=== PATIENT | male | born 1990 | race Caucasian/White ===

== ENCOUNTER 2025-04-20 09:17 | Outpatient (CLI) | payer OTHER, SELFPAY ==
--- OUTSIDE RECORDS SUMMARY | 2025-04-20 09:25 | XMS_ITS | Encounter Summary ---
Author Organization [place] [address] Care Team Providers Care Armature Inspector Name Role Phone Devi Lazo BLAIRE Primary Care Provider [phone] Encounter Details Date Type Department Care Team (Latest Contact Info) Description 02/10/2025 Results Follow-Up [facility] [address] [place] [address] Waqas Olvera MD [address] [place] [address] TESTOSTERONE LEVEL TOTAL, CBC, BASIC METABOLIC PANEL, Additional followed-up results: 6 Social History Tobacco Use Types Packs/Day Years Used Date Smoking Tobacco: Never Smokeless Tobacco: Never Alcohol Use Standard Drinks/Week Comments Yes 0 (1 standard drink = 0.6 oz pur e alcohol) weekends/socially PHQ-2 Answer Date Recorded PHQ-2 Total Score 0 09/13/2024 Sexually Active Control Partners Comments Not Currently Sex and Gender Information Value Date Recorded Sex Assigned at Not on file Legal Sex Male 11:25 AM EDT Gender Identity Not on file Sexual Orientation Not on file documented as of this encounter Functional Status * Is the person deaf or does he/she have serious difficulty hearing? Answer Date of Assessment Author No 09/13/2024 10:14 AM Carly Valadez CCMA * Is the person blind or does he/she have serious difficulty seeing even when wearing glasses? Answer Date of Assessment Author No 09/13/2024 10:14 AM Carly Valadez CCMA * Does this person have serious difficulty walking or climbing stairs? Answer Date of Assessment Author No 09/13/2024 10:14 AM Carly Valadez CCMA * Does this person have difficulty dressing or bathing? Answer Date of Assessment Author No 09/13/2024 10:14 AM Carly Valadez CCMA * Because of a physical, mental or emotional condition, does this person have difficulty doing errands alone such as visiting a doctor's office or shopping? Answer Date of Assessment Author No 09/13/2024 10:14 AM Carly Valadez CCMA documented as of this encounter Mental Status * Because of a physical, mental or emotional condition, does this person have serious difficulty concentrating, remembering or making decisions? Answer Entry Date Author No 09/13/2024 10:14 AM Carly Valadez CCMA documented in this encounter Plan of Treatment Not on file documented as of this encounter Goals Goal Patient Goal Type Associated Problems Recent Progress Patient-Stated? Author Maintain a healthy diet, exercise regularly and maintain an ideal body weight General No Sherita Butt, KAL documented as of this encounter Visit Diagnoses Not on filedocumented in this encounter Care Teams Armature Inspector Relationship Specialty Start Date End Date Devi Lazo APRN [address] [place] [phone] PCP - General Nurse Practitioner 09/14/20 documented as of this encounter
--- OUTSIDE RECORDS SUMMARY | 2025-04-20 09:25 | XMS_ITS | Clinical Summary ---
Author Organization [facility] Address [address] [place] [address] Phone Care Team Providers Care Automotive Buyer Name Role Phone Devi Lazo BLAIRE Primary Care Provider [phone] Allergies Active Allergy Reactions Criticality Noted Date Comments Amitriptyline Other (See Comments) 04/04/2017 Per patient's mother he sleeps all day Medications loratadine (CLARITIN) 10 mg Oral Tablet Take 10 mg by mouth daily. Active ALBUTEROL INHL Inhale into the lungs. Active fluticasone propionate (FLOVENT) 44 mcg/actuation Inhl HFA Aerosol InhalerIndicatio ns:History of asthma Inhale 1 Puff into the lungs 2 times daily. 10.6 g 5 09/13/2024 Active albuterol (PROVENTIL HFA;VENTOLIN HFA) 90 mcg/actuation Inhl HFA Aerosol InhalerIndicatio ns:History of asthma Inhale 2 Puffs into the lungs every 6 hours as needed for Wheezing. 18 g 5 09/13/2024 Active Active Problems Patient Care Coordination No te Formatting of this note migh t be different from the original. ade-07/16/22([id number] Problem Noted Date Diagnosed Date Non-recurrent bilateral ingu inal hernia without obstruction or gangrene 09/22/2024 Assessment & Plan (09/22/2024 12:39 PM EDT): Migraine without aura and wi thout status migrainosus, not intractable 04/04/2017 Mild intermittent asthma without complication ADHD (attention deficit hyperactivity disorder) Encounters Date Type Department Care Team Description 02/10/2025 7:45 AM EDT - 02/10/2025 11:59 PM EDT Hospital Encounter [facility] [address] [place] [address] 129 Malaise and fatigue; Elevated LFTs; Vitamin D deficiency; Hyperlipidemia with target LDL less than 100 Discharge Disposition: Home or Self Care 02/10/2025 Results Follow-Up [facility] [address] [place] [address] Waqas Olvera MD TESTOSTERONE LEVEL TOTAL, CBC, BASIC METABOLIC PANEL, Additional followed-up results: 6 02/08/2025 4:40 PM EDT Office Visit [facility] [address] [place] [address] Devi Lazo APRN Malaise and fatigue (Primary Dx); Vitamin D deficiency; Elevated LFTs; Hyperlipidemia with target LDL less than 100 from Last 3 Months Immunizations Immunization Administration Dates Next Due Adenovirus, Unspecified 03/09/2018 HPV 9 Valent 05/02/2016,01/12/2016 Hep A/Hep B 04/27/2018,03/09/2018 IPV 03/09/2018 Influenza Seasonal Injectable PF 06/16/2013 Influenza Vaccine Quadrivalent 05/02/2016 Influenza Vaccine Quadrivalent PF 02/28/2018 Influenza Vaccine, Unspecified Formulation 02/26 MMR 04/27/2018,03/09/2018 Meningococcal Conjugate 03/19/2007 Meningococcal Oligosaccharide Conjugate 03/09/20 18 Pfizer SARS-CoV-2 Vaccine 12+ Yrs (Purple Cap) 0 05/25/2021,05/03/2021 Td, Unspecified Formulation 09/19/2004 Tdap 03/09/2018,01/12/2016 Varicella 04/27/2018,03/09/2018 Medical History Medical History Date Comments Asthma ADHD (attention deficit hyperactivity disorder) Migraines Migraine without aura and wi thout status migrainosus, not intractable 04/04/2017 Lumbar back pain 01/2020 Family History Medical History Relation Name Comments No Known Problems Brother No Known Problems Father Cancer Maternal Grandfather Cancer Maternal Grandmother Heart Disease Mother Other Mother Brain aneurysm No Known Problems Other Cancer Paternal Grandfather Cancer Paternal Grandmother No Known Problems Sister Allergies Neg Hx Bleeding Prob Neg Hx Hearing Loss Neg Hx Migraines Neg Hx Thyroid Disease Neg Hx Relation Name Status Comments Brother Father Maternal Grandfather Maternal Grandmother Mother Other Paternal Grandfather Paternal Grandmother Sister Social History Tobacco Use Types Packs/Day Years Used Date Smoking Tobacco: Never Smokeless Tobacco: Never Tobacco Cessation:Counseling Given: No Alcohol Use Standard Drinks/Week Comments Yes 0 (1 standard drink = 0.6 oz pur e alcohol) weekends/socially PHQ-2 Answer Date Recorded PHQ-2 Total Score 0 09/13/2024 Sexually Active Control Partners Comments Not Currently Sex and Gender Information Value Date Recorded Sex Assigned at Not on file Legal Sex Male 11:25 AM EDT Gender Identity Not on file Sexual Orientation Not on file Last Filed Vital Signs Vital Sign Reading Time Taken Comments Blood Pressure 130/82 02/08/2025 4:19 PM EDT Pulse 65 02/08/2025 4:19 PM EDT Temperature 36.6 C (97.9 F) 02/08/2025 4:19 PM EDT Respiratory Rate 18 09/13/2024 10:14 AM EDT Oxygen Saturation 98% 02/08/2025 4:19 PM EDT Inhaled Oxygen Concentration - - Weight 80.8 kg (178 lb 3.2 oz) 02/08/2025 4:19 P M EDT Height 175.3 cm (5' 9 ) 02/08/2025 4:19 PM EDT Body Mass Index 26.32 02/08/2025 4:19 PM EDT Plan of Treatment Health Maintenance Due Date Last Done Comments Pneumococcal Vaccine 0-49 (1 of 2 - PCV) 2008 Hepatitis B Vaccine (3 of 3 - Hep B Twinrix 3-dose series) 09/25/2018 04/27/2018, 03/09/2018 COVID-19 Vaccine (3 - season) 2025 05/25/2021, 05/03/2021 Influenza Vaccine (#1) 2025 , 03/24/2021, 02/17/2020, Additional history exists Annual Wellness Exam 09/13/2025 09/13/2024, 03/26/2022, 04/04/2017, Additional history exists DTaP/TDaP/Td (4 - Td or Tdap) 03/09/2028 03/09/2018, 01/12/2016, 09/19/2004 Meningococcal B Vaccine Aged Out No l onger eligible based on patient's age to complete this topic Goals Goal Patient Goal Type Associated Problems Recent Progress Patient-Stated? Author Maintain a healthy diet, exercise regularly and maintain an ideal body weight General No Sherita Butt RMA Procedures Procedure Name Priority Date/Time Associated Diagnosis Comments LIPID PANEL REFLEX Routine 02/10/2025 7: 46 AM EDT Hyperlipidemia with target LDL less than 100 VITAMIN B12/ FOLIC ACID Routine 02/10/2025 7:46 AM EDT Malaise and fatigue T4, FREE (THYROXINE) Routine 02/10/2025 7:46 AM EDT Malaise and fatigue THYROID STIMULATING HORMONE Routine 02/10/2025 7:46 AM EDT Malaise and fatigue VITAMIN D 25 HYDROXY Routine 02/10/2025 7:46 AM EDT Vitamin D deficiency HEPATIC FUNCTION PANEL Routine 02/10/2025 7:46 AM EDT Malaise and fatigue Elevated LFTs BASIC METABOLIC PANEL Routine 02/10/2025 7:46 AM EDT Malaise and fatigue CBC Routine 02/10/2025 7:46 AM EDT Malaise and fatigue TESTOSTERONE LEVEL TOTAL Routine 02/10/2025 7:46 AM EDT Malaise and fatigue from Last 3 Months Results * (ABNORMAL) LIPID PANEL REFLEX (02/10/2025 7:46 AM EDT) Cholesterol 172 <200 mg/dL 02/10/2025 3:12 PM EDT [employer] Comment: < 200 Desirable 200 - 239 Borderline High >= 240 High Triglyceride 76 <150 mg/dL 02/10/2025 3:12 PM EDT [facility] [employer] Comment: < 150 Normal 150 - 199 Borderline High 200 - 499 High >= 500 Very High HDL 36(L) >=40 mg/dL 02/10/2025 3:12 PM EDT [facility] [employer] Comment: > 60 Optimal 40 - 60 Acceptable < 40 Low LDL Calculated 122(H) <100 mg/dL 02/10/2025 3:12 PM EDT [facility], [facility] Comment: < 100 Optimal 100 - 129 Near or above optimal 130 - 159 Borderline High 160 - 189 High >= 190 Very High The National Institutes of Health (NIH) equation is used for all lipid panels that report calculated LDL (LDL-C). Non-HDL-C Calculated 136(H) <=129 mg/dL 02/10/2025 3:12 PM EDT [facility] [employer] [employer] Comment: <130 Desirable 130-159 Above Desirable 160-189 Borderline High 190-219 High >= 220 Very High Fasting Specimen? Yes None 025 3:12 PM EDT [facility] [employer] Blood VENOUS BLOOD / Unknown Venipuncture / Unknown 02/10/2025 7:46 AM EDT 02/10/2025 7:46 AM EDT us Devi Lazo DIEING OUT MACHINE OPERATOR CHEMISTRY ORDERABLES Final Res ult [facility] [employer] [address] , [place] [address] * VITAMIN B12/ FOLIC ACID (02/10/2025 7:46 AM EDT) Vitamin B12 995 232 - 1,245 pg/mL 02/10/2025 3:10 PM EDT [facility] [employer] Folate 10.70 >=4.50 ng/mL 02/10/2025 3:10 PM EDT [facility] [employer], [employer] Blood VENOUS BLOOD / Unknown Venipuncture / Unknown 02/10/2025 7:46 AM EDT 02/10/2025 7:46 AM EDT Narrative [facility] - 02/10/2025 3:10 PM EDT Ingestion of lesli doses of biotin (>5 mg/day) taken within 8 hours of drawing blood sample can interfere with this immunoassay test. Devi Lazo APRN CHEMISTRY ORDERABLES Final Res ult [facility], [facility] [address], [place] [address] * CBC (02/10/2025 7:46 AM EDT) Pathologist [facility] WBC 6.3 3.7 - 10.3 x10(3)/mcL 02/10/2025 2:47 PM EDT [facility] RBC 5.27 4.60 - 6.10 x10(6)/mcL 02/10/2025 2:47 PM EDT [facility] Hgb 15.3 13.7 - 17.5 g/dL 02/10/2025 2:47 PM EDT [facility] Hct 46.4 40.0 - 51.0 % 02/10/2025 2:47 PM EDT [facility] MCV 88.0 80.0 - 100.0 fL 02/10/2025 2:47 PM EDT [facility] MCH 29.0 26.0 - 34.0 pg 02/10/2025 2:47 PM EDT [facility] MCHC 33.0 30.7 - 35.5 g/dL 02/10/2025 2:47 PM EDT [facility] RDW 12.5 <=14.9 % 02/10/2025 2:47 PM EDT [facility] Platelet 361 155 - 369 x10(3)/mcL 02/10/2025 2:47 PM EDT [facility] MPV 9.3 8.8 - 12.5 fL 02/10/2025 2:47 PM EDT [facility] Blood VENOUS BLOOD / Unknown Venipuncture / Unknown 02/10/2025 7:46 AM EDT 02/10/2025 7:46 AM EDT Devi Arehart DIEING OUT MACHINE OPERATOR HEMATOLOGY ORDERABLES Final Re sult Performing Organization Address [facility] Co de Phone Number [facility] [employer] [facility] [address] , [place] [address] * VITAMIN D 25 HYDROXY (02/10/2025 7:46 AM EDT) Vit D 25 OH 32.9 30.0 - 150.0 ng/mL 02/10/2025 3:10 PM EDT [facility] [employer] [facility] Comment: Preferred: >= 30 ng/mL Insufficient: 21-29 ng/mL Deficient <= 20 ng/mL Possible Toxicity: >150 ng/mL Samples should not be taken from patients receiving therapy with high biotin doses (i.e. > 5 mg/day) until at least 8 hours following the last biotin administration. Blood VENOUS BLOOD / Unknown Venipuncture / Unknown 02/10/2025 7:46 AM EDT 02/10/2025 7:46 AM EDT Devi Lazo DIEING OUT MACHINE OPERATOR CHEMISTRY ORDERABLES Final Res ult Performing Organization Address [facility] Co de Phone Number [facility] [employer] [facility] [address] , [place] [address] * THYROID STIMULATING HORMONE (02/10/2025 7:46 AM EDT) Pathologist [facility] TSH 1.440 0.270 - 4.200 mcIU/mL 02/10/2025 3:12 PM EDT [facility] [employer] [facility] Blood VENOUS BLOOD / Unknown Venipuncture / Unknown 02/10/2025 7:46 AM EDT 02/10/2025 7:46 AM EDT Narrative [facility] [employer] - 02/10/2025 3:12 PM EDT Ingestion of lesli doses of biotin (>5 mg/day) taken within 8 hours of drawing blood sample can interfere with this immunoassay test. Devialan Lazo DIEING OUT MACHINE OPERATOR CHEMISTRY ORDERABLES Final Res ult Performing Organization Address [facility] Co de Phone Number [facility] [employer] [address] , [place] [address] * T4, FREE (THYROXINE) (02/10/2025 7:46 AM EDT) Free T4 1.27 0.80 - 1.80 ng/dL 02/10/2025 3:12 PM EDT [facility] [employer] Blood VENOUS BLOOD / Unknown Venipuncture / Unknown 02/10/2025 7:46 AM EDT 02/10/2025 7:46 AM EDT Narrative [employer] - 02/10/2025 3:12 PM EDT Ingestion of lesli doses of biotin (>5 mg/day) taken within 8 hours of drawing blood sample can interfere with this immunoassay test. Devialan Lazo DIEING OUT MACHINE OPERATOR CHEMISTRY ORDERABLES Final Res ult Performing Organization Address [facility] Phone Number [facility] [employer] [address] [place] [phone] * TESTOSTERONE LEVEL TOTAL (02/10/2025 7:46 AM EDT) Testosterone Lvl 675 300 - 1,080 ng/dL 02/10/2025 3:12 PM EDT [facility] [employer] Blood VENOUS BLOOD / Unknown Venipuncture / Unknown 02/10/2025 7:46 AM EDT 02/10/2025 7:46 AM EDT [facility] [email or web address] [facility] - 02/10/2025 3:12 PM EDT Interpretation of total testosterone level for individuals on replacement therapy requires clinical correlation by the prescribing provider. Reference intervals and/or therapeutic targets in these individuals may vary. Ingestion of lesli doses of biotin (>5 mg/day) taken within 8 hours of drawing blood sample can interfere with this immunoassay test. Devi Clifton DIEING OUT MACHINE OPERATOR CHEMISTRY ORDERABLES Final Res ult Performing Organization Address [facility] Co de Phone Number [facility] [employer] [address] [place], [place] [id number] * (ABNORMAL) HEPATIC FUNCTION PANEL (02/10/2025 7:46 AM EDT) Total Protein 7.4 6.4 - 8.3 gm/dL 02/10/2025 3:12 PM EDT [facility] Albumin 4.4 3.5 - 5.2 gm/dL 02/10/2025 3:12 PM EDT [facility] Bili Direct 0.3 0.0 - 0.3 mg/dL 02/10/2025 3:12 PM EDT [facility] Bili Total 1.7(H) 0.2 - 1.4 mg/dL 02/10/2025 3:12 PM EDT [facility] AST 22 <=40 U/L 02/10/2025 3:12 PM EDT [facility] ALT 31 <=41 U/L 02/10/2025 3:12 PM EDT [facility] Alk Phos 59 40 - 129 U/L 02/10/2025 3:12 PM EDT [facility] Blood VENOUS BLOOD / Unknown Venipuncture / Unknown 02/10/2025 7:46 AM EDT 02/10/2025 7:46 AM EDT us Devi Lazo DIEING OUT MACHINE OPERATOR CHEMISTRY ORDERABLES Final Res ult [facility] [address] , [place] [address] * BASIC METABOLIC PANEL (02/10/2025 7:46 AM EDT) Sodium 138 136 - 145 mmol/L 02/10/2025 3:12 PM EDT [facility] Potassium 4.3 3.5 - 5.0 mmol/L 02/10/2025 3:12 PM EDT [facility] Chloride 102 98 - 107 mmol/L 02/10/2025 3:12 PM EDT [facility] Total CO2 26 22 - 29 mmol/L 02/10/2025 3:12 PM EDT [facility] Anion Gap 10 7 - 16 mmol/L 02/10/2025 3:12 PM EDT [facility] Calcium 9.7 8.6 - 10.4 mg/dL 02/10/2025 3:12 PM EDT [facility] [employer], [facility] Glucose Lvl 87 70 - 99 mg/dL 02/10/2025 3:12 PM EDT [facility] [employer] BUN 17 6 - 20 mg/dL 02/10/2025 3:12 PM EDT [facility] [employer], [facility] Creatinine 0.74 0.67 - 1.30 mg/dL 02/10/2025 3:12 PM EDT [facility] [employer], [facility] eGFR (CKD-EPIcr 2020) 121 >=60 mL/min/1.7 3 m2 02/10/2025 3:12 PM EDT [facility] [employer], [facility] Comment:Estimated GFR was ca lculated using the CKD-EPIcr (2020) equation refit without race. The equation is recommended by the National Kid[employer] - [place] [employer]ph[employer] Task Force. Blood VENOUS BLOOD / Unknown Venipuncture / Unknown 02/10/2025 7:46 AM EDT 02/10/2025 7:46 AM EDT us Devi Lazo DIEING OUT MACHINE OPERATOR CHEMISTRY ORDERABLES Final Res ult [facility] [employer], [facility] [address] , [place] [address] from Last 3 Mon[address] [place] [id number] Care Teams Automotive Buyer Relationship Specialty Start Date End Date Devi Lazo APRN [address] [place] [phone] PCP - General Nurse Practitioner 09/14/20
--- NOTE | 2025-04-20 10:18 | PC.NURSE ---
PRE AND POST Spirometry completed without incident. Albuterol 0.083% given via HHN, per written protocol, Pt tolerated tx well.
[2025-04-20] MEDS: ALBUTEROL 0.083% 2.5 MG/3 ML NEB IH (10:20)
== END 2025-04-20 23:59 | disposition home or self-care (01) ==
LOC: RT 09:22
PROVIDERS: PCP Nurse Practitioner; Visit Provider Chiropractor
DX: J45.909 Unspecified asthma, uncomplicated (principal)
CPT/HCPCS: 94010